=== PATIENT | male | born 2000 | race Caucasian/White ===

== ENCOUNTER 2019-07-20 21:16 | Emergency (ER) | payer OTHER, MEDICAID ==
[~2019-07-20] VITALS: Ht 177.8 cm; Wt 69.0 kg
[2019-07-20 21:28] VITALS: BP 103/59
== END 2019-07-20 22:48 ==
LOC: ED 22:06
DX: M25.561 Pain in right knee (principal); Y04.0XXA Assault by unarmed brawl or fight, initial encounter; Y93.89 Activity, other specified; Y92.89 Other specified places as the place of occurrence of the external cause; Y99.8 Other external cause status
CPT/HCPCS: 99283